=== PATIENT | female | born 1940 | race Caucasian/White ===

== ENCOUNTER 2024-06-16 16:50 | Inpatient (IN) | payer OTHER ==
[2024-06-16 17:53] LABS: BASO % 0.7 % (0-2.0); EOS % 2.2 % (0-4.5); HEMATOCRIT 31.8 % (32.4-45.2); HEMOGLOBIN 10.3 GM/dL (10.7-15.3); LYMPH % 28.7 % (8-40); MCH 26.7 pg (25.7-33.7); MCHC 32.3 g/dl (32.0-36.0); MEAN CELL VOLUME 82.7 fl (80-96); MEAN PLT VOLUME 7.8 fl (7.5-11.1); MONO % 8.4 % (3.8-10.2); PLATELET COUNT 300 10^3/uL (134-434); RBC 3.85 M/mm3 (3.60-5.2); RDW 17.4 % (11.6-15.6); WHITE BLOOD COUNT 8.5 K/mm3 (4.0-10.0)
[2024-06-16] MEDS: ASPIRIN 81 MG CHEWABLE TABLETS PO ONE (17:54)
[2024-06-16 18:17] LABS: POTASSIUM 4.7 mmol/L (3.5-5.1)
[2024-06-16 18:19] LABS: ALBUMIN 2.6 g/dl (3.4-5.0); BLOOD UREA NITROGEN 21.7 mg/dL (7-18); CALCIUM 8.7 mg/dL (8.5-10.1); MAGNESIUM 1.9 mg/dL (1.8-2.4)
[2024-06-16 18:22] LABS: CREATININE 0.7 mg/dL (0.55-1.3)
[2024-06-16 18:24] LABS: BILIRUBIN,TOTAL 0.2 mg/dL (0.2-1)
[2024-06-16] MEDS ORDERED: ACETAMINOPHEN INJECTION 100 ML ONE (19:32)
[2024-06-16] MEDS: ACETAMINOPHEN 1000 MG/100 ML BAG IVPB ONE (19:39)
[2024-06-16] MEDS ORDERED: ALBUTEROL SO4 2.5/IPRATROPIUM 0.5 INH SOL 3 ML VIAL.NEB. NEB ONE (20:03)
[2024-06-16] MEDS ORDERED: PIPERACILLIN/TAZOB 3.375 GM 3.375 GM/50 ML BAG IVPB ONE (20:04)
[2024-06-16] MEDS: ALBUTEROL SO4 2.5/IPRATROPIUM 0.5 INH SOL 3 ML VIAL.NEB. NEB ONE (20:10)
[2024-06-16] MEDS: PIPERACILLIN/TAZOB 3.375 GM 3.375 GM in DEXTROSE 5%-WATER - 50 ML IVPB ONE (20:10)
[2024-06-16] MEDS ORDERED: methylPREDNISolone NA SUCC 125 MG/2 ML VIAL ONE (20:19)
[2024-06-16] MEDS ORDERED: VANCOMYCIN 1 GM PREMIX (F) 1 GM/200 ML BAG ONE (20:19)
[2024-06-16] MEDS: methylPREDNISolone NA SUCC 125 MG/2 ML VIAL IVPUSH ONE (20:29)
[2024-06-16] MEDS: VANCOMYCIN 1,000 MG in DEXTROSE 5%-WATER - 250 ML IVPB ONE (20:34)
[2024-06-16] MEDS: BUDESONIDE/FORMETEROL FUMARATE 160/4.5 mcg INHALER IH SCH (22:50)
[2024-06-16] MEDS ORDERED: ONDANSETRON 4 MG TABLET PO PRN (22:55)
[2024-06-17] MEDS: methylPREDNISolone NA SUCC 40 MG/1 ML VIAL IVPUSH SCH (02:05)
[2024-06-17] MEDS: ALBUTEROL SO4 2.5/IPRATROPIUM 0.5 INH SOL 3 ML VIAL.NEB. NEB SCH (07:55)
[2024-06-17 08:27] LABS: HEMATOCRIT 33.1 % (32.4-45.2); HEMOGLOBIN 10.9 GM/dL (10.7-15.3); MCH 27.1 pg (25.7-33.7); MCHC 33.1 g/dl (32.0-36.0); MEAN CELL VOLUME 81.9 fl (80-96); MEAN PLT VOLUME 7.9 fl (7.5-11.1); PLATELET COUNT 274 10^3/uL (134-434); RBC 4.04 M/mm3 (3.60-5.2); RDW 17.6 % (11.6-15.6); WHITE BLOOD COUNT 6.9 K/mm3 (4.0-10.0)
[2024-06-17 08:49] LABS: POTASSIUM 4.6 mmol/L (3.5-5.1)
[2024-06-17 09:15] LABS: BLOOD UREA NITROGEN 21.8 mg/dL (7-18); CALCIUM 9.4 mg/dL (8.5-10.1)
[2024-06-17 09:17] LABS: CREATININE 0.8 mg/dL (0.55-1.3); PHOSPHOROUS 3.3 mg/dL (2.5-4.9)
[2024-06-17 09:40] LABS: IRON SERUM 20 ug/dL (50-175); TOTAL IRON BINDING CAPACITY 341 ug/dL (250-450)
[2024-06-17] MEDS: ASPIRIN 81 MG CHEWABLE TABLETS PO SCH (09:50)
[2024-06-17] MEDS: FAMOTIDINE 20 MG TABLET PO SCH (09:50)
[2024-06-17] MEDS: amLODIPine BESYLATE 10 MG TABLET (FP) PO SCH (09:50)
[2024-06-17] MEDS: metoPROLOL SUCCINATE 25 MG TAB.SR.24H (FP) PO SCH (09:51)
[2024-06-17] MEDS: ISOSORBIDE MONONITRATE 60 MG TAB.SR.24H (FP) PO SCH (09:51)
[2024-06-17] MEDS: CLOPIDOGREL BISULFATE 75 MG TABLET (FP) PO SCH (09:51)
[2024-06-17] MEDS: LORazepam 0.5 MG TABLET PO SCH (09:52)
[2024-06-17] MEDS: ARTIFICIAL TEARS OPHTHALMIC DROPS OU SCH (09:52)
[2024-06-17] MEDS: ENOXAPARIN NA (PORCINE) 40 MG/0.4 ML DISP.SYRIN SQ SCH (09:53)
[2024-06-17] MEDS: CEFTRIAXONE 1 G/50 ML PREMIX 50 ML IVPB SCH (09:53)
[2024-06-17] MEDS: VALPROIC ACID 250 MG CAPSULE PO SCH (09:53)
[2024-06-17] MEDS: AZITHROMYCIN IVPB 500 MG/250 ML BAG IVPB SCH (09:54)
[2024-06-17] MEDS: ROSUVASTATIN CA 20 MG TABLET PO SCH (22:48)
[2024-06-18] MEDS: guaiFENesin 200 MG/10 ML 10 ML UNIT-DOSE CUPS PO PRN (04:11)
[2024-06-18] MEDS: ACETAMINOPHEN 325 MG TABLET (FP) PO PRN (05:40)
[2024-06-18 08:40] LABS: BASO % 0.1 % (0-2.0); HEMOGLOBIN 10.3 GM/dL (10.7-15.3); LYMPH % 9.9 % (8-40); MCH 27.2 pg (25.7-33.7); MCHC 33.1 g/dl (32.0-36.0); MEAN CELL VOLUME 82.2 fl (80-96); MONO % 2.7 % (3.8-10.2); NEUT % 87.3 % (42.8-82.8); PLATELET COUNT 274 10^3/uL (134-434); RBC 3.77 M/mm3 (3.60-5.2); RDW 17.8 % (11.6-15.6); WHITE BLOOD COUNT 9.6 K/mm3 (4.0-10.0)
[2024-06-18 09:06] LABS: POTASSIUM 4.2 mmol/L (3.5-5.1)
[2024-06-18 09:32] LABS: ALBUMIN 2.7 g/dl (3.4-5.0); BLOOD UREA NITROGEN 19.8 mg/dL (7-18); CALCIUM 9.3 mg/dL (8.5-10.1); MAGNESIUM 2.1 mg/dL (1.8-2.4)
[2024-06-18 09:35] LABS: CREATININE 0.6 mg/dL (0.55-1.3); PHOSPHOROUS 3.2 mg/dL (2.5-4.9)
[2024-06-18 09:37] LABS: BILIRUBIN,TOTAL 0.2 mg/dL (0.2-1); TOT PROT 6.2 g/dl (6.4-8.2)
[2024-06-18] MEDS: ALBUTEROL SO4 2.5/IPRATROPIUM 0.5 INH SOL 3 ML VIAL.NEB. NEB ONE (12:42)
[2024-06-18] MEDS: FUROSEMIDE 40 MG/4 ML INJECTABLE VIAL IVPUSH ONE (13:44)
[2024-06-18] MEDS: ALBUTEROL SO4 0.083% IH SOL 2.5 MG/3 ML VIAL.NEB. NEB PRN (16:17)
[2024-06-19 08:36] LABS: HEMATOCRIT 32.8 % (32.4-45.2); HEMOGLOBIN 10.7 GM/dL (10.7-15.3); MCH 26.7 pg (25.7-33.7); MCHC 32.7 g/dl (32.0-36.0); MEAN CELL VOLUME 81.6 fl (80-96); MEAN PLT VOLUME 8.1 fl (7.5-11.1); PLATELET COUNT 301 10^3/uL (134-434); RBC 4.02 M/mm3 (3.60-5.2); RDW 17.8 % (11.6-15.6); WHITE BLOOD COUNT 7.4 K/mm3 (4.0-10.0)
[2024-06-19 09:22] LABS: POTASSIUM 4.4 mmol/L (3.5-5.1)
[2024-06-19 09:26] LABS: ALBUMIN 2.8 g/dl (3.4-5.0); CALCIUM 9.2 mg/dL (8.5-10.1)
[2024-06-19 09:29] LABS: CREATININE 0.7 mg/dL (0.55-1.3)
[2024-06-19 09:31] LABS: BILIRUBIN,TOTAL 0.2 mg/dL (0.2-1); TOT PROT 6.3 g/dl (6.4-8.2)
[2024-06-19 13:08] VITALS: BMI 25.4
[2024-06-20 07:30] LABS: POTASSIUM 4.3 mmol/L (3.5-5.1)
[2024-06-20 07:32] LABS: ALBUMIN 2.7 g/dl (3.4-5.0); BLOOD UREA NITROGEN 31.9 mg/dL (7-18); CALCIUM 8.9 mg/dL (8.5-10.1)
[2024-06-20 07:36] LABS: CREATININE 0.7 mg/dL (0.55-1.3)
[2024-06-20 07:37] LABS: BILIRUBIN,TOTAL 0.4 mg/dL (0.2-1); TOT PROT 6.3 g/dl (6.4-8.2)
[2024-06-20] MEDS: methylPREDNISolone NA SUCC 40 MG/1 ML VIAL IVPUSH SCH (13:16)
[2024-06-21 08:50] LABS: HEMOGLOBIN 11.1 GM/dL (10.7-15.3); MCH 26.7 pg (25.7-33.7); MCHC 32.7 g/dl (32.0-36.0); MEAN CELL VOLUME 81.8 fl (80-96); PLATELET COUNT 313 10^3/uL (134-434); RBC 4.15 M/mm3 (3.60-5.2)
[2024-06-21 09:14] LABS: POTASSIUM 4.9 mmol/L (3.5-5.1)
[2024-06-21 09:29] LABS: ALBUMIN 2.7 g/dl (3.4-5.0); BLOOD UREA NITROGEN 33.7 mg/dL (7-18); CALCIUM 9.1 mg/dL (8.5-10.1)
[2024-06-21 09:32] LABS: CREATININE 0.6 mg/dL (0.55-1.3)
[2024-06-21 09:34] LABS: BILIRUBIN,TOTAL 0.3 mg/dL (0.2-1); TOT PROT 6.2 g/dl (6.4-8.2)
[2024-06-22] MEDS ORDERED: ALBUTEROL SO4 0.083% IH SOL 2.5 MG/3 ML VIAL.NEB. NEB PRN (03:41)
[2024-06-22] MEDS ORDERED: guaiFENesin 200 MG/10 ML 10 ML UNIT-DOSE CUPS PO PRN (03:41)
[2024-06-22] MEDS ORDERED: ONDANSETRON 4 MG TABLET PO PRN (03:41)
[2024-06-22] MEDS: ALBUTEROL SO4 2.5/IPRATROPIUM 0.5 INH SOL 3 ML VIAL.NEB. NEB SCH (07:25)
[2024-06-22] MEDS: metoPROLOL SUCCINATE 25 MG TAB.SR.24H (FP) PO SCH (10:25)
[2024-06-22] MEDS: ASPIRIN 81 MG CHEWABLE TABLETS PO SCH (10:25)
[2024-06-22] MEDS: CLOPIDOGREL BISULFATE 75 MG TABLET (FP) PO SCH (10:25)
[2024-06-22] MEDS: LORazepam 0.5 MG TABLET PO SCH (10:25)
[2024-06-22] MEDS: ISOSORBIDE MONONITRATE 60 MG TAB.SR.24H (FP) PO SCH (10:25)
[2024-06-22] MEDS: amLODIPine BESYLATE 10 MG TABLET (FP) PO SCH (10:25)
[2024-06-22] MEDS: FAMOTIDINE 20 MG TABLET PO SCH (10:26)
[2024-06-22] MEDS: ENOXAPARIN NA (PORCINE) 40 MG/0.4 ML DISP.SYRIN SQ SCH (10:26)
[2024-06-22] MEDS: VALPROIC ACID 250 MG CAPSULE PO SCH (10:28)
[2024-06-22] MEDS: ACETAMINOPHEN 325 MG TABLET (FP) PO PRN (10:42)
[2024-06-22] MEDS: BUDESONIDE/FORMETEROL FUMARATE 160/4.5 mcg INHALER IH SCH (11:22)
[2024-06-22] MEDS: ARTIFICIAL TEARS OPHTHALMIC DROPS OU SCH (11:22)
[2024-06-22 11:48] VITALS: BP 138/75; PULSE 86; RESP 20; TEMP 98.2
[2024-06-22] MEDS ORDERED: ROSUVASTATIN CA 20 MG TABLET PO SCH (22:00)
== END 2024-06-22 11:59 | disposition home or self-care (01) | DRG 190 ==
LOC: JER 16:50 → JERBED 21:03 → J4S 21:39 → OBSVTOIN 06-17 15:23 → J8W 06-21 23:02
PROVIDERS: ADMIT Internal Medicine
DX: J44.0 Chronic obstructive pulmonary disease with (acute) lower respiratory infection (principal); J18.9 Pneumonia, unspecified organism; J96.11 Chronic respiratory failure with hypoxia; J44.1 Chronic obstructive pulmonary disease with (acute) exacerbation; I10 Essential (primary) hypertension; E78.5 Hyperlipidemia, unspecified; R13.10 Dysphagia, unspecified; G89.4 Chronic pain syndrome; N63.10 Unspecified lump in the right breast, unspecified quadrant; I25.10 Atherosclerotic heart disease of native coronary artery without angina pectoris; K42.9 Umbilical hernia without obstruction or gangrene; D64.9 Anemia, unspecified; Z95.5 Presence of coronary angioplasty implant and graft
CPT/HCPCS: 0241U-QW; 36415; 71045-TC-FY; 71250-TC; 80048; 80053; 82272; 82962; 83540; 83550; 83690; 83735; 84100; 84484; 85025; 85027; 85045; 87899; 93005; 93010; 93306-TC; 94640; 99285-25; G0378; J0131